=== PATIENT | male | born 1980 | race Native Hawaiian/Other Pacific Islander ===

== ENCOUNTER 2019-09-10 08:40 | Outpatient (CLI) | payer OTHER | END 2019-09-10 08:44 | disposition short-term general hospital (02) | LOC: AMB 08:40 | DX: N50.812 Left testicular pain (principal) | CPT/HCPCS: A0425; A0427 ==

== ENCOUNTER 2019-09-10 08:46 | Emergency (ER) | payer OTHER ==
[~2019-09-10] VITALS: Ht 180.3 cm; Wt 77.1 kg
[2019-09-10 08:47] VITALS: TEMP 98.1
[2019-09-10 09:49] LABS: PLATELET COUNT 278 K/uL (142-355)
[2019-09-10 11:04] VITALS: BP 131/88
== END 2019-09-10 11:12 | disposition home or self-care (01) ==
LOC: ED 08:46
PROVIDERS: Student in an Organized Health Care Education/Training Program
DX: N50.812 Left testicular pain (principal)
CPT/HCPCS: 80048; 81000; 85027; 87490; 87590; 96374; 99284; J1885

== ENCOUNTER 2020-09-15 17:18 | Emergency (ER) | payer OTHER ==
[~2020-09-15] VITALS: Ht 180.3 cm; Wt 81.6 kg
[2020-09-15 20:25] VITALS: BP 130/90; TEMP 98.1
== END 2020-09-15 20:25 | disposition home or self-care (01) ==
LOC: ED 17:30
PROC: 2W3CX1Z Immobilization of Right Lower Arm using Splint (ICD-10-PCS; principal; 2020-09-15)
DX: S50.811A Abrasion of right forearm, initial encounter (principal); S66.811A Strain of other specified muscles, fascia and tendons at wrist and hand level, right hand, initial encounter; W22.8XXA Striking against or struck by other objects, initial encounter; Y92.89 Other specified places as the place of occurrence of the external cause
CPT/HCPCS: 90715; 96372; 99283; J2270; J2550